=== PATIENT | female | born 1945 | race Caucasian/White ===

== ENCOUNTER 2021-05-31 06:59 | Observation (INO) ==
[2021-05-31 07:50] LABS: ABS Eosinophils 0.2 10^3/ul (0-0.6); ABS Lymphocytes 1.1 10^3/ul (1.0-4.8); ABS Monocytes 0.4 10^3/ul (0-0.8); ABS Neutrophils 3.3 10^3/ul (1.5-7.7); Eosinophil % 3.9 %; Hematocrit 37 % (35-47); Hemoglobin 12.6 g/dL (12.0-16.0); Lymphocyte % 22.6 %; Mean Corpuscular HGB Conc 34 g/dL (31-36); Mean Corpuscular Hemoglobin 29 pg (27-31); Mean Corpuscular Volume 86 fL (80-97); Mean Platelet Volume 8.4 fL (7.4-10.4); Platelet Count 220 10^3/uL (150-450); Red Blood Count 4.31 10^6 /uL (3.70-4.87); Red Cell Distribution Width 15 % (10-15); White Blood Count 5.1 10^3/uL (3.5-10.8)
[2021-05-31 08:06] LABS: INR 3.26 (0.86-1.15)
[2021-05-31 08:07] LABS: Albumin 3.7 g/dL (3.2-5.2); Albumin/Globulin Ratio 1.8 (1-3); Calcium 8.8 mg/dL (8.6-10.3); EGFR Non-African American 50.4 (>60); Globulin 2.1 g/dL (2-4); Total Bilirubin 0.4 mg/dL (0.2-1.0); Total Protein 5.8 g/dL (6.4-8.9)
[2021-05-31 08:09] LABS: Troponin I 0.01 ng/mL (<0.03)
[2021-05-31] MEDS ORDERED: Ondansetron 4 mg VIAL 2 MG/ML 2 ml VIAL IV PRN (09:29)
[2021-05-31] MEDS ORDERED: Al Hydrox/Mg Hydrox/Simet LIQ 30 ML UDC PO PRN (09:29)
[2021-05-31] MEDS ORDERED: Enoxaparin 40 MG/0.4 ML SYR SUBCUT SCH (10:00)
[2021-05-31] MEDS: NS 0.9% 1000 ml BAG 1,000 ML IV SCH ×2 (14:10→20:51)
[2021-05-31] MEDS ORDERED: Warfarin DAILY REMINDER **NOTE FOLLOW UP SCH (17:00)
[2021-05-31] MEDS: Carbidopa/Levodop 25/100 MG TAB PO SCH (17:19)
[2021-06-01] MEDS: NS 0.9% 1000 ml BAG 1,000 ML IV SCH (03:03)
[2021-06-01 07:07] LABS: INR 3.95 (0.86-1.15)
[2021-06-01] MEDS: Carbidopa/Levodop 25/100 MG TAB PO SCH ×2 (08:11→13:48)
[2021-06-01] MEDS ORDERED: Cholecalciferol (VIT D3) 1,000 unit TAB PO SCH (09:00)
[2021-06-01 13:53] VITALS: BP 124/94
== END 2021-06-01 15:38 | disposition home or self-care (01) ==
LOC: ED 06:59 → MEDTELE 06:59
PROVIDERS: ADMIT Internal Medicine; ATTEND Internal Medicine